=== PATIENT | female | born 1985 | race Caucasian/White ===

== ENCOUNTER 2019-03-11 02:50 | Emergency (ER) | payer OTHER ==
[~2019-03-11] VITALS: Ht 157.5 cm; Wt 106.1 kg
[2019-03-11 02:53] VITALS: Ht 157.5 cm; Wt 106.1 kg
[2019-03-11 04:33] VITALS: BP 130/80
== END 2019-03-11 04:30 | disposition home or self-care (01) ==
LOC: ED 02:50
DX: S01.81XA Laceration without foreign body of other part of head, initial encounter (principal); Y04.8XXA Assault by other bodily force, initial encounter; Y93.89 Activity, other specified; Y92.89 Other specified places as the place of occurrence of the external cause; Y99.8 Other external cause status
CPT/HCPCS: 90715; J2001

== ENCOUNTER 2019-03-27 03:40 | Emergency (ER) | payer OTHER ==
[~2019-03-27] VITALS: Ht 157.5 cm; Wt 111.1 kg
[2019-03-27 03:45] VITALS: Ht 157.5 cm; Wt 111.1 kg
[2019-03-27 05:19] VITALS: BP 138/84
== END 2019-03-27 05:27 | disposition home or self-care (01) ==
LOC: ED 03:40
DX: S29.011A Strain of muscle and tendon of front wall of thorax, initial encounter (principal); X58.XXXA Exposure to other specified factors, initial encounter; Y93.89 Activity, other specified; Y92.89 Other specified places as the place of occurrence of the external cause; Y99.8 Other external cause status
CPT/HCPCS: J1885; J2270; Q0092

== ENCOUNTER 2019-08-01 00:32 | Emergency (ER) | payer OTHER ==
[~2019-08-01] VITALS: Ht 157.5 cm; Wt 110.4 kg
[2019-08-01 00:55] VITALS: Ht 157.5 cm; Wt 110.4 kg
[2019-08-01 03:11] VITALS: BP 121/70
== END 2019-08-01 03:11 | disposition home or self-care (01) ==
LOC: ED 00:32
DX: J20.9 Acute bronchitis, unspecified (principal); J11.1 Influenza due to unidentified influenza virus with other respiratory manifestations

== ENCOUNTER 2019-11-24 11:43 | Emergency (ER) | payer OTHER ==
[~2019-11-24] VITALS: Ht 157.5 cm; Wt 104.3 kg
[2019-11-24 11:50] VITALS: Ht 157.5 cm; Wt 104.3 kg
[2019-11-24 12:35] LABS: BASOPHIL % 0.7 % (0-2); RED CELL DISTRIBUTION WIDTH 12.7 % (11.5-14.5)
[2019-11-24 12:37] LABS: PLATELET COUNT 258 x10^3mcL (130-400)
[2019-11-24 12:42] LABS: CALCIUM 8.6 mg/dL (8.5-10.1); CARBON DIOXIDE 27.1 mmol/L (21-32); CHLORIDE SERUM 101 mmol/L (98-107); CREATININE SERUM 0.9 mg/dL (0.6-1.0); GFR1 > 60 mL/min; GLUCOSE SERUM 102 mg/dL (74-106); POTASSIUM SERUM 3.5 mmol/L (3.5-5.1); SODIUM SERUM 137 mmol/L (136-145)
[2019-11-24 12:47] LABS: ALBUMIN 3.3 g/dL (3.4-5.0); ALKALINE PHOSPHATASE 64 U/L (46-116); ALT/SGPT 49 U/L (14-59); AST/SGOT 24 U/L (15-37); BILIRUBIN TOTAL 0.5 mg/dL (0.20-1.00); TOTAL PROTEIN, SERUM 7.6 g/dL (6.4-8.2)
[2019-11-24 16:56] VITALS: BP 110/59
== END 2019-11-24 16:57 | disposition home or self-care (01) ==
LOC: ED 11:43
PROVIDERS: Emergency Medicine
DX: L03.116 Cellulitis of left lower limb (principal); L03.115 Cellulitis of right lower limb
CPT/HCPCS: 83880; 85378; J7030; Q0092